=== PATIENT | male | born 1980 | race African-American/Black ===

== ENCOUNTER 2019-06-26 04:37 | Emergency (ER) | payer MEDICAID ==
[~2019-06-26] VITALS: Ht 170.2 cm; Wt 68.0 kg
[2019-06-26 05:01] VITALS: BP 109/82
== END 2019-06-26 05:07 | disposition home or self-care (01) ==
LOC: ER 04:37
DX: J45.909 Unspecified asthma, uncomplicated (principal); G89.29 Other chronic pain; Z00.00 Encounter for general adult medical examination without abnormal findings; F17.200 Nicotine dependence, unspecified, uncomplicated
CPT/HCPCS: 99283

== ENCOUNTER 2020-10-03 02:11 | Emergency (ER) | payer MEDICAID ==
[~2020-10-03] VITALS: Ht 170.2 cm; Wt 64.0 kg
[2020-10-03] MEDS ORDERED: MORPHINE SULFATE 4 MG/ML CPJ (NOT FOR IM USE) IV STA (02:13)
[2020-10-03] MEDS ORDERED: ONDANSETRON HCL 4MG/2ML INJ IV STA (02:13)
[2020-10-03] MEDS ORDERED: TETANUS, DIPHTHERIA, PERTUSSIS VAC/PF 0.5ML (>7YR OLD) IM ONE (02:15)
[2020-10-03] MEDS ORDERED: SODIUM CHLORIDE 0.9% 1,000 ML IV ONE (02:15)
[2020-10-03] MEDS ORDERED: CEFAZOLIN 1000MG PREMIX 50 ML IV ONE (02:15)
[2020-10-03 02:40] VITALS: BP 113/72
[2020-10-03 02:42] LABS: BASOPHILS % 1.1 % (0.0-2.0); EOSINOPHILS % 5.1 % (0.0-5.0); HEMATOCRIT. 44.6 % (42.0-52.0); HEMOGLOBIN. 14.8 g/dL (14.0-18.0); LYMPHOCYTES % 36.9 % (20.0-50.0); MEAN CORPUSCULAR HEMOGLOBIN 29.4 pg (28.0-32.0); MEAN CORPUSCULAR VOLUME 88.5 fL (80.0-94.0); MEAN PLATELET VOLUME 8.9 fl (7.4-10.4); MONOCYTES % 7.5 % (2.0-8.0); NEUTROPHILS % 49.4 % (40.0-76.0); PLATELET 190 x1000/uL (130-400); RED BLOOD CELL COUNT 5.04 mill/uL (4.7-6.1); RED CELL DISTRIBUTION WIDTH 14.5 % (11.6-14.6)
[2020-10-03 02:48] LABS: CHLORIDE 109 mEq/L (98-107)
== END 2020-10-03 02:46 | disposition short-term general hospital (02) ==
LOC: ER 02:11
DX: S31.114A Laceration without foreign body of abdominal wall, left lower quadrant without penetration into peritoneal cavity, initial encounter (principal); W26.8XXA Contact with other sharp object(s), not elsewhere classified, initial encounter; Y93.89 Activity, other specified; Y92.89 Other specified places as the place of occurrence of the external cause; Y99.8 Other external cause status; K66.1 Hemoperitoneum; J45.909 Unspecified asthma, uncomplicated
CPT/HCPCS: 36415; 80048; 85025; 86850; 86900; 86901; 90471; 90715; 93005; 96365; 96375; 99285; J0690; J2270; J2405; J7030

== ENCOUNTER 2023-11-29 04:03 | Emergency (ER) | payer MEDICAID, OTHER ==
[~2023-11-29] VITALS: Ht 175.3 cm; Wt 69.0 kg
[2023-11-29 04:10] VITALS: BP 118/68; PULSE 95; RESP 20; TEMP 98.7; O2SAT 100
[2023-11-29] MEDS ORDERED: P50 MT (15:19)
[2023-11-29] MEDS ORDERED: ALBU6.7H15 INH (15:19)
[2023-11-29] MEDS ORDERED: ALBU2.5V13 NEB (15:19)
== END 2023-11-29 06:04 | disposition left against medical advice (07) ==
LOC: ER 04:03
DX: R06.02 Shortness of breath (principal); Z53.21 Procedure and treatment not carried out due to patient leaving prior to being seen by health care provider
CPT/HCPCS: 99281